=== PATIENT | female | born 1950 | race Caucasian/White ===

== ENCOUNTER 2024-02-18 10:54 | Observation (INO) ==
[2024-02-18] MEDS: Iodixanol 320 (CONTRAST) 100 ML SDV IV ONE (11:37)
[2024-02-18 11:49] LABS: Activated Partial Thrombo Time 30.3 seconds (26.0-38.0); INR 0.93 (0.85-1.14)
[2024-02-18 11:50] LABS: ABS Eosinophils 0.2 10^3/uL (0.0-0.5); ABS Lymphocytes 2.3 10^3/uL (1.0-4.8); ABS Monocytes 0.4 10^3/uL (0.0-0.9); ABS Neutrophils 4.3 10^3/uL (1.5-7.6); Eosinophil % 2.3 %; Hematocrit 40.8 % (35-45); Hemoglobin 13.7 g/dL (11.5-14.3); Mean Corpuscular Hemoglobin 29.8 pg (27-33); Mean Corpuscular Hgb Conc 33.5 g/dL (31-36); Mean Corpuscular Volume 88.9 fL (80-97); Mean Platelet Volume 8.1 fL (7.5-11.2); Platelet Count 430 10^3/uL (150-450); White Blood Count 7.2 10^3/uL (3.8-11.8)
[2024-02-18 12:43] LABS: Albumin 4.6 g/dL (3.2-5.2); Albumin/Globulin Ratio 2.3 (1-3); Creatinine, Serum 0.76 mg/dL (0.51-0.95); Direct Bilirubin 0.1 mg/dL (0.03-0.18); HDL Cholesterol 68.2 mg/dL; Indirect Bilirubin 0.4 mg/dL (0.3-1.0); Potassium 3.9 mmol/L (3.5-5.0); Total Bilirubin 0.5 mg/dL (0.2-1.0); Total Protein 6.6 g/dL (6.4-8.9); eGFR CKD-EPI 83.2 (>60)
[2024-02-18 13:41] LABS: Urine Appearance Clear; Urine Bilirubin Negative (Negative); Urine Blood Negative (Negative); Urine Color Colorless; Urine Glucose Negative (Negative); Urine Ketones Negative (Negative); Urine Nitrite Negative (Negative); Urine Protein Negative (Negative); Urine Specific Gravity 1.025 (1.002-1.030); Urine Urobilinogen Negative (Negative)
[2024-02-18 16:04] LABS: Magnesium 1.8 mg/dL (1.9-2.7)
[2024-02-18] MEDS: Magnesium Sulfate 2 gm BAG 2 GM/50 ML BAG IVPB ONE (17:33)
[2024-02-18] MEDS: Enoxaparin 40 MG/0.4 ML SYR SUBCUT SCH (17:35)
[2024-02-18 19:32] LABS: Erythrocyte Sed Rate 9 mm/Hr (0-29)
[2024-02-18] MEDS: Gadoteridol (CONTRAST) 279.3 MG/ML 10 ML IV ONE (20:46)
[2024-02-18] MEDS ORDERED: Gadoteridol (CONTRAST) 279.3 MG/ML 10 ML IV SCH (21:00)
[2024-02-19] MEDS: Aspirin EC 81 mg TAB.EC (enteric coated) PO SCH (08:34)
[2024-02-19 09:35] VITALS: BP 106/70
== END 2024-02-19 14:30 | disposition home or self-care (01) ==
LOC: ED 10:54 → EDHOLD 10:54 → MED 15:35
PROVIDERS: ADMIT Hospitalist; ATTEND Hospitalist